=== PATIENT | female | born 1965 | race Caucasian/White ===

== ENCOUNTER 2024-08-03 14:47 | Emergency (ER) | payer OTHER, BC, SELFPAY ==
[2024-08-03 14:48] VITALS: BMI 33.2
[2024-08-03 15:07] VITALS: BP 127/72; PULSE 104; RESP 17; TEMP 36.7; O2SAT 96; BMI 33.2
--- NOTE | 2024-08-03 15:13 | XR_ITS ---
Examination: Breast ultrasound, unilateral, left complete Date and time of exam: August 03, 2024 1559 hours INDICATIONS: Black spot underneath the nipple left breast 7 days Technique: Real-time khoury scale ultrasonographic imaging performed left breast including all 4 quadrants as well as nipple retroareolar and axillary region. Findings: 4:00 nodule lobular margins 8 x 11 mm 4:00 calcifications 4 x 3 mm IMPRESSION: BI-RADS Category 3: Probably benign findings One additional 6 month left breast sonogram follow-up needed to document stability of 4:00 nodule described above
--- NOTE | 2024-08-03 15:14 | PD.EDRME ---
Rapid Medical Screening Exam RME Arrival date/time: 08/03/24 14:47 58-year-old female presents to the emergency department today for complaints of sore to the left breast Chief Complaint: General Adult/Misc Complain Time Seen by Provider: 08/03/24 15:02 Vital signs: Vital Signs Temperature 98.1 F 08/03/24 15:07 Pulse Rate 104 H 08/03/24 15:07 Respiratory Rate 17 08/03/24 15:07 Blood Pressure 127/72 08/03/24 15:07 Pulse Oximetry (%) 96 08/03/24 15:07 Oxygen Delivery Method Room Air 08/03/24 15:07
[2024-08-03] MEDS: KETOROLAC INJ 30 MG/ML VIAL IM (15:29)
[2024-08-03 16:08] LABS: Basophils # (Auto) 0.1 Thou/mm3 (0.0-0.2); Basophils % (Auto) 1 % (0-2.5); Eosinophils # (Auto) 0.2 Thou/mm3 (0.0-0.5); Eosinophils % (Auto) 2 % (0-10); Hematocrit 37.3 % (36.0-46.0); Hemoglobin 11.9 g/dL (12.0-16.0); Immature Granulocytes % (Auto) 0 % (0-0); Immature Granulocytes Auto 0.04 Thou/mm3 (0.00-0.00); Lymphocytes # (Auto) 3.5 Thou/mm3 (1.0-4.8); Lymphocytes % (Auto) 34 % (10-50); Mean Corpuscular HGB Conc 31.9 g/dl (31.0-37.0); Mean Corpuscular Hemoglobin 28.1 pg (25.0-35.0); Mean Corpuscular Volume 88 fL (80-100); Monocytes # (Auto) 0.8 Thou/mm3 (0.0-0.8); Monocytes % (Auto) 7 % (0-12); Neutrophils # (Auto) 5.6 Thou/mm3 (1.8-7.7); Neutrophils % (Auto) 56 % (37-80); Nucleated Red Blood Cell % 0 /100 WBC (0); Platelet Count 406 Thou/mm3 (140-440); RDW Standard Deviation 43.8 fL (36.4-46.3); Red Blood Count 4.24 Miln/mm3 (4.00-5.20); White Blood Count 10.1 Thou/mm3 (3.6-11.0)
[2024-08-03 16:33] LABS: Alanine Aminotransferase 8 U/L (10-49); Albumin, Serum 4.4 gm/dL (3.4-4.8); Albumin/Globulin Ratio 1.9 (1.2-2.2); Alkaline Phosphatase 144 U/L (46-116); Anion Gap 7 (7-16); Aspartate Amino Transferase 15 U/L (0-34); BUN/Creatinine Ratio 8 Ratio (12-20); Bilirubin,Total 0.3 mg/dL (0.3-1.2); Blood Urea Nitrogen 10 mg/dL (9-23); C-Reactive Protein < 0.5 mg/dL (0.0-0.9); Calcium 9.7 mg/dL (8.3-10.6); Calcium (Corrected) 9.7 mg/dL (8.5-10.1); Chloride 101 mMol/L (98-107); Creatinine (Component) 1.2 mg/dL (0.6-1.3); Estimated Creatinine Clearance 57.4 mL/min (>60); Globulin 2.3 gm/dL (2.3-3.5); Glucose 81 mg/dL (74-106); Osmolality,Calculated 271 (275-295); Procalcitonin < 0.04 ng/ml (0.0-0.49); Sodium 137 mMol/L (136-145); Total Protein 6.7 gm/dL (5.7-8.2); eGFR 52 See Note
--- NOTE | 2024-08-03 18:04 | EDNOTE_ITS ---
ED General RME/HPI General Chief complaint: General Adult/Misc Complain Stated complaint: BLACK SPOT UNDER L) BREAST, IT IS GROWING Time Seen by Provider: 08/03/24 15:02 Arrival date/time: 08/03/24 14:47 58-year-old female presents to the emergency department today for complaints of sore to the left breast Limitations: no limitations RME / HPI RME / HPI narrative: 08/03/24 14:47 58-year-old female presents to the emergency department today for complaints of sore to the left breast Related Data Home Medications ?Medication ?Instructions ?Recorded ?Confirmed duloxetine 60 mg capsule,delayed 60 mg PO BID #0 caps 01/01/17 10/22/19 release (Cymbalta) gabapentin 800 mg tablet 800 mg PO TID #0 tabs 10/22/19 hydrocodone 10 mg-acetaminophen 1 tab PO Q8H PRN Pain 05/08/18 10/22/19 325 mg tablet ([place]) levothyroxine 88 mcg capsule 88 mcg PO QDAY 05/08/18 0 10/22/19 albuterol sulfate 90 mcg/actuation 2 puff inhalation B ID 10/16/18 10/22/19 aerosol inhaler lidocaine 5 % topical ointment 2 - 3 g topical QID 06/2910/22/19 lidocaine 5 % topical patch 1 patch topical Q12H 10/1610/22/19 tizanidine 4 mg capsule 6 mg PO QID PRN Muscle Pain 10/16/18 10/22/19 amitriptyline 25 mg tablet 25 mg PO BID 04/10/1910/21 Previous Rx's ?Medication ?Instructions ?Recorded diazepam 5 mg tablet (Valium) 5 mg PO BID PRN muscle s pasm #10 07/28/22 tabs clindamycin HCl 300 mg capsule 300 mg PO TID 7 days #2 1 caps 08/03/24 mupirocin 2 % topical ointment 1 applic topical TID 10 days #22 08/03/24 grams Allergies Allergy/AdvReac Type Severity Reaction Status Date / Time Sulfa (Sulfonamide Allergy Severe RASH,SWELLI Verified 08/03/24 14:51 Antibiotics) NG Tetanus Vaccines and Toxoid Allergy Severe LOCAL AREA Verified 08/03/24 14:51 HARD,RED,SWOLLEN Review of Systems Review of Systems Systems Reviewed: All systems reviewed, normal except as documented Constitutional Constitutional: Reports system reviewed and no additional complaints, except as documented, Denies fever(s) and Denies headache(s) Eyes Eyes: Reports system reviewed and no additional complaints, except as documented and Denies blurry vision ENT Ears, Nose, Mouth, and Throat: Reports system reviewed and no additional complaints, except as documented, Denies headache(s), Denies nasal congestion and Denies nasal discharge Cardiovascular Cardiovascular: Reports system reviewed and no additional complaints, except as documented, Denies chest pain and Denies dyspnea Respiratory Respiratory: Reports system reviewed and no additional complaints, except as documented, Denies chest congestion, Denies cough and Denies dyspnea Gastrointestinal Gastrointestinal: Reports system reviewed and no additional complaints, except as documented and Denies abdominal pain Integumentary/Breasts Skin/Breast: Reports system reviewed and no additional complaints, except as documented, Denies rash and Reports other (Skin sore left breast) Neurologic Neurologic: Reports system reviewed and no additional complaints, except as documented, Reports as per HPI and Denies headache(s) Past Medical History Past Medical History NEUROLOGIC: Negative Neurological Disorders or Seizures CARDIAC: Negative Cardiac Disorders, Congestive Heart Failure, Edema, Cellulitis or Varicose Veins RESPIRATORY: Positive Asthma (HAS INHALER) and Pneumonia (HOSP 2019); Negative Chronic Obstructive Pulmonary Disease (COPD), Tuberculosis, Pulmonary Embolism or Sleep Apnea GASTROINTESTINAL: Positive Gastrointestinal Disorders, Gastrointestinal Bleed (2016 HOSP), Diverticulitis and Obesity; Negative Hepatitis GENITOURINARY: Negative Genitourinary Disorders or Renal Disease REPRODUCTIVE: Negative Breast Cancer or Previous Pregnancies MUSCULOSKELETAL: Positive Musculoskeletal Disorders, Arthritis, Fibromyalgia and Fractures (LEFT ARM HAD CAST) ENDOCRINE: Positive Endocrine Disorders and Hypothyroidism (TAKES MED); Negative Diabetes Mellitus Type 1 or Diabetes Mellitus Type 2 HEMATOLOGIC: Negative Blood Disorders or Sickle Cell Disease PSYCHO/SOCIAL: Positive Depression (TAKES MED) and Anxiety (TAKES MED) OTHER HISTORY: Positive Hospitalization (2019 FOR PNUEMONIA,2016 FOR GI BLEED), Shingles (2017), Falls (01/29), MRSA (LEFT BREAST 2009) and Chicken Pox; Negative Autoimmune Disease, Down Syndrome, Developmental Delay, Blood Transfusions, Blood Transfusion Reaction, Anesthesia Reactions, Chemotherapy, Radiation Therapy, Measles, Mumps, Cancer or Breast Cancer Family History FAMILY HISTORY: Positive Family Respiratory Disorders (FATHER,MOTHER,BROTHER (COPD)), Family Cardiac Disorders (SISTER ([place])MOTHER,FATHER,BROTHER,SISTER (HTN)), Family Cancer (BROTHER (KIDNEY)) and Family Surgery (MOTHER,F ATHER,BROTHER,SISTER); Negative Family Psychiatric Problems, Family Gastrointestinal Problems or Family Anesthesia Reaction Surgical History SURGICAL: Positive Abdominal Surgery and Gastric Bypass Surgery (2003); Negative Cardiac Surgery or Pacemaker Social History SMOKING STATUS: Never smoker SECOND HAND EXPOSURE: No SUBSTANCE USE: does not use ED Exam General Limitations: Present no limitations General appearance: Present alert and in no apparent distress Head Head exam: Present atraumatic Eye Eye exam: Present normal appearance, PERRL and EOMI ENT ENT exam: Present normal exam, normal oropharynx and mucous membranes moist Neck Neck exam: Present normal inspection, full ROM and trachea midline Chest Chest inspection: Present normal inspection and symmetric chest wall rise Respiratory Respiratory exam: Present normal lung sounds bilaterally Cardiovascular Cardiovascular exam: Present regular rate, normal rhythm and normal heart sounds Abdominal Exam Abdominal exam: Present soft and normal bowel sounds Extremities Exam Extremities exam: Present normal inspection and full ROM Back Exam Back exam: Present normal inspection and full ROM Neurological Exam Neurological exam: Present alert, oriented X3 and CN II-XII intact Psychiatric Psychiatric exam: Present normal affect and normal mood Skin Skin exam: Present warm, dry and other (Skin sore left breast) Course Quality Measures none Orders Category Date Time Status US breast LT complete Stat Exams 08/03/24 15:13 Completed CBC Stat Lab 08/03/24 15:52 Completed CMP [Comprehensive Metabolic Panel] Stat Lab 08/03/24 15:52 Completed CRP [C-Reactive Protein] Stat Lab 08/03/24 15:52 Completed Procalcitonin Stat Lab 08/03/24 15:52 Completed Ketorolac Inj [Toradol Inj] Med 08/03/24 15:13 Discontinued 30 mg IM X1 ONE Vital Signs Vital signs: Vital Signs Temperature 98.1 F 08/03/24 15:07 Pulse Rate 104 H 08/03/24 15:07 Respiratory Rate 17 08/03/24 15:07 Blood Pressure 127/72 08/03/24 15:07 Pulse Oximetry (%) 96 08/03/24 15:07 Oxygen Delivery Method Room Air 08/03/24 15:07 O2 saturation 96% on room air within normal limits Discharge Plan Plan Patient Disposition: HOME (Self Care) Discharge Disposition comment: Stable Prescriptions/Referrals Prescriptions/Med Rec: New clindamycin HCl 300 mg capsule 300 mg PO TID 7 Days Qty: 21 0RF mupirocin 2 % ointment 1 applic topical TID 10 Days Qty: 22 0RF No Action gabapentin 800 MG tablet 800 mg PO TID Qty: 0 duloxetine [Cymbalta] 60 MG capsule,delayed release(DR/EC) 60 mg PO BID Qty: 0 tizanidine 4 mg Capsule 6 mg PO QID PRN (Reason: Muscle Pain) lidocaine 5 % adhesive patch,medicated 1 patch topical Q12H Patient Comments: APPLY ONE PATCH 12 HOURS ON AND 12 HOURS off NEEDED FOR PAIN Rx Instructions: apply to back albuterol sulfate 90 mcg/actuation HFA aerosol inhaler 2 puff inhalation BID lidocaine 5 % ointment 2 - 3 g topical QID Patient Comments: APPLY UP TO 3 TO 4 grams TO affected area(s) 3 TO 4 times DAILY amitriptyline 25 mg Tablet 25 mg PO BID hydrocodone-acetaminophen [[place]] 10-325 mg Tablet 1 tab PO Q8H PRN (Reason: Pain) levothyroxine 88 mcg Capsule 88 mcg PO QDAY diazepam [Valium] 5 mg tablet 5 mg PO BID PRN (Reason: muscle spasm) Qty: 10 0RF Referrals: Karri Rodriguez MD [Primary Care Provider] - In 1 week Problem List Clinical Impression: Skin sore, Abnormal breast exam Patient/Caregiver Discharge Instructions Education Materials: What Are Benign Breast Conditions? Additional Instructions: Please bring a copy of your CT report to your primary care doctor request diagnostic mammogram if symptoms persist or worsen Take all antibiotics as prescribed Print Language: Malaysian Stand Alone Forms: Donna Award Info., Patient Portal Info Letter PA/DRAFTER GEOPHYSICAL Supervising Physician PA/DRAFTER GEOPHYSICAL Supervising Physician: Dr. joaquin [facility] Narrative MDM hospital course: 58-year-old female presents to the emergency department today for complaints of sore to the left breast On exam patient appears to have a sore at the 4 o'clock position of the left breast there appears to be of some bruising and a scab. Lab work and imaging obtained no acute emergent findings noted Patient given a copy of her ultrasound report to bring to her doctor patient reports has a follow-up appointment in 2 days with to see her primary care doctor patient be given a course of antibiotics. Explained to the patient I would like to have a diagnostic mammogram for further evaluation patient states understanding Clinical Information Provided by patient Medical Records Reviewed [facility] Meds/Rx Considered, not Ordered Describe details: Rx given Labs/Rad/Tests considered, not Ordered Describe details: Completed Chronic Illness/Social Conditions which may negatively complicate care or outcome(s)-explain: None or not applicable EKG EKG not done Lab Interpretation Labs: interpreted by me Lab(s) interpretation(s): Interpreted by me Imaging Imaging interpretation: see narrative above Medication Administration(s) Medication Administration History Discontinued Medications Ketorolac Tromethamine (Ketorolac Inj 30 Mg/Ml Vial) 30 mg IM X1 ONE Stop: 08/03/24 15:14 Last Admin: 08/03/24 15:29 Dose: 30 mg Documented By: KF Given Diagnosis Differential diagnosis: Abscess, cellulitis, malignancy Most likely dx, and/or detailed dx discussion: Skin sore
[2024-08-03 18:24] VITALS: PULSE 74; RESP 20; TEMP 36.4; O2SAT 98
== END 2024-08-03 18:26 | disposition home or self-care (01) ==
PROVIDERS: Nurse Practitioner Primary Care; Emergency Provider Emergency Medicine; PCP Family Medicine
DX: R92.8 Other abnormal and inconclusive findings on diagnostic imaging of breast (principal)
CPT/HCPCS: 36415; 76641; 80053; 84145; 85025; 86140; 96372; 99284; J1885

== ENCOUNTER → 2024-08-06 | Outpatient (CLI) | payer BC, SELFPAY ==
--- NOTE | 2024-08-06 12:14 | XR_ITS ---
Examination: Screening digital mammography, bilateral Computer aided detection 3-D breast Tomosynthesis, bilateral Date and time of exam: 50 pound today at 1220 hours INDICATIONS: Black spot on the breast that is growing 2 weeks Indication: Screening Technique: Nonmagnified MLO, CC views of the breasts to been obtained, reconstructed from 3-D Tomosynthesis images. R2 computer aided detection program utilized for evaluation of suspicious masses and/or abnormal calcifications. 3-D Tomosynthesis images obtained. Findings: Scattered areas of fibroglandular density. Skin lesion upper left breast Intact implants No suspicious masses Impression: BI-RADS category II: Benign Findings. Recommend 1 year follow-up mammogram. Recommend dermatology assessment of the skin lesion
== END | disposition home or self-care (01) ==
PROVIDERS: PCP Registered Nurse; Referring Provider Registered Nurse; Visit Provider Registered Nurse
DX: Z12.31 Encounter for screening mammogram for malignant neoplasm of breast (principal); R92.323 Mammographic fibroglandular density, bilateral breasts
CPT/HCPCS: 77063; 77067